=== PATIENT | female | born 2000 | race Caucasian/White ===

== ENCOUNTER → 2020-04-14 | Outpatient (CLI) | payer SELFPAY | LOC: M LABSMTC 16:51 | PROVIDERS: ATTEND Pediatrics | DX: Z11.59 Encounter for screening for other viral diseases (principal) ==

== ENCOUNTER → 2020-10-29 | Outpatient (REF) | payer BC, SELFPAY ==
[2020-10-29 18:01] LABS: RSV AMPLIFICATION NEGATIVE (NEGATIVE)
== END ==
LOC: M SFHCPLAZ 16:42
PROVIDERS: ATTEND Internal Medicine Infectious Disease
DX: R09.89 Other specified symptoms and signs involving the circulatory and respiratory systems (principal)

== ENCOUNTER → 2020-12-09 | Outpatient (REF) | payer BC ==
[2020-12-09 16:08] LABS: RSV AMPLIFICATION NEGATIVE (NEGATIVE)
== END ==
LOC: M SFHCPLAZ 15:14
PROVIDERS: ATTEND Internal Medicine Infectious Disease
DX: R09.81 Nasal congestion (principal)

== ENCOUNTER → 2021-04-20 | Outpatient (REF) | payer BC | LOC: M SFHCPLAZ 16:59 | PROVIDERS: ATTEND Internal Medicine Infectious Disease | DX: R09.81 Nasal congestion (principal) ==

== ENCOUNTER → 2021-10-21 | Outpatient (CLI) | payer BC ==
[2021-10-21 16:33] LABS: BASO # 0.1 10^3/uL (0.0-0.2); EOS # 0.1 10^3/uL (0.0-0.5); EOS % 2.2 % (0.0-3.0); HEMATOCRIT 43.9 % (36.0-47.0); HEMOGLOBIN 14.1 g/dl (12.0-15.5); LYMPH # 2.4 10^3/uL (1.5-5.0); LYMPH % 41.2 % (24.0-44.0); MEAN CORPUSCULAR HEMOGLOBIN 26.9 pg (27.0-33.0); MEAN CORPUSCULAR HGB CONC 32.1 g/dl (32.0-36.5); MEAN CORPUSCULAR VOLUME 83.6 fl (80.0-96.0); MONO # 0.3 10^3/uL (0.0-0.8); MONO % 5.1 % (2.0-8.0); NEUTROPHILS # 2.9 10^3/uL (1.5-8.5); NEUTROPHILS % 50.2 % (36.0-66.0); PLATELET COUNT, AUTOMATED 256 10^3/uL (150-450); RED BLOOD COUNT 5.25 10^6/uL (4.00-5.40); WHITE BLOOD COUNT 5.9 10^3/uL (4.0-10.0)
[2021-10-21 17:03] LABS: FREE T4 1.08 NG/DL (0.78-1.33); PROLACTIN 3.5 NG/ML; TESTOSTERONE 25 NG/DL (14-76); THYROID STIMULATING HORMONE 0.964 uIU/ML (0.463-3.98)
[2021-10-21 17:18] LABS: VITAMIN B12 LEVEL 338 PG/ML (247-911)
[2021-10-21 17:43] LABS: HIV 1&2 SCREEN CENTAUR NEGATIVE (NEGATIVE)
== END ==
LOC: M ADAMS 13:05
PROVIDERS: ATTEND Obstetrics & Gynecology
DX: L65.9 Nonscarring hair loss, unspecified (principal); Z20.2 Contact with and (suspected) exposure to infections with a predominantly sexual mode of transmission

== ENCOUNTER → 2023-01-19 | Outpatient (CLI) | payer BC ==
[2023-01-19 15:56] LABS: BASO # 0.1 10^3/uL (0.0-0.2); BASO % 1.1 % (0.0-1.0); EOS # 0.2 10^3/uL (0.0-0.5); EOS % 2.8 % (0.0-3.0); HEMATOCRIT 44.5 % (36.0-47.0); LYMPH # 2.5 10^3/uL (1.5-5.0); LYMPH % 40.4 % (24.0-44.0); MEAN CORPUSCULAR HEMOGLOBIN 26.9 pg (27.0-33.0); MEAN CORPUSCULAR HGB CONC 31.5 g/dl (32.0-36.5); MEAN CORPUSCULAR VOLUME 85.4 fl (80.0-96.0); MONO # 0.3 10^3/uL (0.0-0.8); MONO % 5.5 % (2.0-8.0); NEUTROPHILS # 3.1 10^3/uL (1.5-8.5); NEUTROPHILS % 49.9 % (36.0-66.0); PLATELET COUNT, AUTOMATED 289 10^3/uL (150-450); RED BLOOD COUNT 5.21 10^6/uL (4.00-5.40); WHITE BLOOD COUNT 6.2 10^3/uL (4.0-10.0)
[2023-01-19 16:02] LABS: ERYTHROCYTE SEDIMENTATION RATE 14 mm/hr (0-20)
[2023-01-19 16:20] LABS: C REACTIVE PROTEIN QUANTITATIV < 0.40 MG/DL (<1.0)
[2023-01-19 16:21] LABS: ALBUMIN 4.1 G/DL (3.2-5.2); ALKALINE PHOSPHATASE 50 U/L (46-116); ALT/SGPT 11 U/L (7.0-40); AST/SGOT < 8 U/L (<34); BILIRUBIN,TOTAL 0.5 MG/DL (0.3-1.2); BLOOD UREA NITROGEN 13 MG/DL (9-23); CALCIUM LEVEL 10.1 MG/DL (8.5-10.1); CARBON DIOXIDE LEVEL 29 MMOL/L (20-31); CHLORIDE LEVEL 102 MMOL/L (98-107); CREATININE FOR GFR 0.58 MG/DL (0.55-1.30); GLOMERULAR FILTRATION RATE > 60.0 (>60); GLUCOSE, FASTING 79 MG/DL (60-100); POTASSIUM SERUM 4.8 MMOL/L (3.5-5.1); SODIUM LEVEL 139 MMOL/L (136-145); TOTAL PROTEIN 7.5 G/DL (5.7-8.2)
[2023-01-19 16:25] LABS: VITAMIN B12 LEVEL 466 PG/ML (211-911)
[2023-01-19 16:28] LABS: THYROID STIMULATING HORMONE 1.061 uIU/ML (0.55-4.78)
[2023-01-19 16:30] LABS: FREE T4 1.16 NG/DL (0.89-1.76)
[2023-01-19 16:52] LABS: HIV 1&2 SCREEN NEGATIVE (NEGATIVE)
[2023-01-19 17:18] LABS: GC DNA AMPLIFICATION NEGATIVE (NEGATIVE)
[2023-01-20 20:28] LABS: TOTAL 25(OH) VITAMIN D 31.9 NG/ML (20.0-100.0)
[2023-01-21 19:18] LABS: IMMUNOGLOBULIN A 178.4 MG/DL (40-350); IMMUNOGLOBULIN G 1266 MG/DL (650-1600); IMMUNOGLOBULIN M 122.6 MG/DL (50-300)
== END ==
LOC: M PLAIMG 13:08
PROVIDERS: ATTEND Internal Medicine Infectious Disease
DX: J32.1 Chronic frontal sinusitis (principal); R05.3 Chronic cough; Z11.4 Encounter for screening for human immunodeficiency virus [HIV]; Z13.29 Encounter for screening for other suspected endocrine disorder; Z13.21 Encounter for screening for nutritional disorder

== ENCOUNTER → 2023-01-20 | Outpatient (CLI) | payer BC | LOC: M PLAIMG 10:04 | PROVIDERS: ATTEND Internal Medicine Infectious Disease | DX: R05.3 Chronic cough (principal); J32.1 Chronic frontal sinusitis ==

== ENCOUNTER 2023-05-17 13:07 | Emergency (ER) | payer BC ==
[~2023-05-17] VITALS: Ht 170.2 cm; Wt 61.4 kg
[2023-05-17 13:56] VITALS: BP 122/83; TEMP 98.1; O2SAT 100
== END 2023-05-17 14:17 | disposition home or self-care (01) ==
LOC: M ED 13:07
DX: T58.91XA Toxic effect of carbon monoxide from unspecified source, accidental (unintentional), initial encounter (principal); E78.5 Hyperlipidemia, unspecified; I49.3 Ventricular premature depolarization; Z91.010 Allergy to peanuts